=== PATIENT | male | born 1940 | race Caucasian/White ===

== ENCOUNTER → 2018-10-08 | Outpatient (CLI) | payer OTHER ==
--- NOTE | 2018-10-08 11:15 | 2DMMODE ---
[facility] [employer] [place] [address] 2 D/M-MODE ECHOCARDIOGRAM Name: LORENA SINCLAIR RYAN Room #: REG [facility]#: [id number] Admission: 10/08/18 Attend Phys: Sherman Dalton MD Discharge: Date of : 38 Date of Service: 10/08/18 1115 Report #: [id number] THIS REPORT FOR: //name// APPROVED REPORT Study performed: 10/08/2018 10:38:53 EXAM: Comprehensive 2D, Doppler, and color-flow Echocardiogram Patient Location: Out-Patient Status: routine BSA: 1.91 HR: 74 bpm BP: 138/78 mmHg Rhythm: NSR Other Information Study Quality: Adequate Indications CAD 2D Dimensions RVDd: 38.60 mm IVSd: 9.74 (7-11mm) LVOT Diam: 19.61 (18-24mm) LVDd: 49.69 mm PWd: 9.28 (7-11mm) Ascending Ao: 36.14 (22-36mm) LVDs: 33.85 (25-40mm) Aortic Root: 36.01 mm Volumes Left Atrial Volume (Systole) Single Plane 4CH: 24.04 mL Single Plane 2CH: 40.22 mL LA ESV Index: 18.00 mL/m2 Aortic Valve AoV Peak Julito.: 1.08 m/s AO Peak Gr.: 4.64 mmHg LVOT Max P.84 mmHg LVOT Max V: 0.84 m/s MELANI Vmax: 2.36 cm2 Mitral Valve E/A Ratio: 0.8 MV Decel. Time: 362.32 ms MV E Max Julito.: 0.41 m/s [facility] [address] [address] 2 D/M-MODE ECHOCARDIOGRAM Name: LORENA SINCLAIR Room #: REG [facility]#: [id number] Admission: 10/08/18 Attend Phys: Sherman Dalton MD Discharge: Date of : 38 Date of Service: 10/08/18 1115 Report #: [id number] A Julito.: 0.52 m/s MV PHT: 105.07 ms IVRT: 83.04 ms Pulmonary Valve PV Peak Julito.: 0.79 m/s PV Peak Gr.: 2.48 mmHg Pulmonary Vein P Vein S: 0.54 m/s P Vein D: 0.36 m/s P Vein S/D Ratio: 1.50 Tricuspid Valve TR Peak Julito.: 2.51 m/s RAP Estimate: 5.00 mmHg TR Peak Gr.: 25.18 mmHg PA Pressure: 30.00 mmHg Left Ventricle The left ventricle is normal size. There is normal LV segmental wall motion. There is normal left ventricular wall thickness. Left ventricular systolic function is normal. LVEF is 55-60%. Mild diastolic dysfunction is present (impaired relaxation pattern). Right Ventricle The right ventricle is normal size. The right ventricular systolic function is normal. Atria The left atrium size is normal. The right atrium size is normal. Aortic Valve Aortic valve leaflets are mildly thickened and calcified. No aortic regurgitation is present. There is no aortic valvular stenosis. Mitral Valve The mitral valve is normal in structure. Mild mitral regurgitation. Tricuspid Valve The tricuspid valve is normal in structure. Mild tricuspid regurgitation. Estimated PAP is 30mmHg. Pulmonic Valve [facility] [address] 2 D/M-MODE ECHOCARDIOGRAM Name: LORENA SINCLAIR Room #: REG [facility]#: [id number] Admission: 10/08/18 Attend Phys: Sherman Dalton MD Discharge: Date of : 38 Date of Service: 10/08/18 1115 Report #: [id number] The pulmonary valve is normal in structure. Mild to moderate pulmonic regurgitation. Great Vessels The aortic root is normal in size. The ascending aorta is normal in size. IVC is normal in size and collapses >50% with inspiration. Pericardium There is no pericardial effusion. <Conclusion> The left ventricle is normal size. LVEF is 55-60%. Aortic valve leaflets are mildly thickened and calcified. The mitral valve is normal in structure. Mild mitral regurgitation. The tricuspid valve is normal in structure. Mild tricuspid regurgitation. Estimated PAP is 30mmHg. The pulmonary valve is normal in structure. Mild to moderate pulmonic regurgitation. There is no pericardial effusion. <ELECTRONICALLY SIGNED> By: Lenny Hodges MD 10/08/18 1115 1115 111 Lenny Hodges MD /INF
== END ==
LOC: CV 07:07
DX: I08.1 Rheumatic disorders of both mitral and tricuspid valves (principal); I25.10 Atherosclerotic heart disease of native coronary artery without angina pectoris